=== PATIENT | female | born 1945 | race Hispanic/Latino ===

== ENCOUNTER → 2017-11-16 | Outpatient (CLI) | payer OTHER | END | disposition home or self-care (01) | LOC: RAH 13:02 | PROVIDERS: ATTEND Family Medicine | DX: Z12.31 Encounter for screening mammogram for malignant neoplasm of breast (principal) | CPT/HCPCS: 77067 ==

== ENCOUNTER → 2018-05-15 | Outpatient (CLI) | payer OTHER ==
[~2018-05-15] MED LIST: IOHEXOL-350 50ML VIAL IV ONE
== END | disposition home or self-care (01) ==
LOC: RAH 11:40
PROVIDERS: ATTEND Family Medicine
DX: R51 Headache (principal); R42 Dizziness and giddiness
CPT/HCPCS: 70470; Q9967

== ENCOUNTER 2021-01-11 14:12 | Inpatient (IN) | payer OTHER ==
[~2021-01-11] VITALS: Ht 157.5 cm; Wt 70.7 kg
[2021-01-11] MEDS ORDERED: PANTOPRAZOLE 40 MG/VIAL IVP ONE (15:00)
[2021-01-11 15:28] LABS: BASOPHILS % (AUTO) 0.3 % (0.0-5.0); EOSINOPHILS % (AUTO) 1.5 % (0.0-8.0); HEMATOCRIT 25.2 % (36-48); LYMPHOCYTES % (AUTO) 30.7 % (21.0-51.0); MEAN CORPUSCULAR HEMOGLOBIN 26.3 pg (27.0-33.0); MEAN CORPUSCULAR HGB CONC 30.6 g/dL (32.0-36.0); MONOCYTES % (AUTO) 5.3 % (3.0-13.0); NEUTROPHILS % (AUTO) 60.2 % (40.0-77.0); NUCLEATED RED BLOOD CELLS 0.1 % (0.0-0.19); PLATELET COUNT (AUTO) 444 K/uL (130-400); RED BLOOD CELL COUNT(AUTO) 2.93 MIL/uL (4.00-5.50); RED CELL DISTRIBUTION WIDTH 15.4 % (11.0-15.5); WHITE BLOOD COUNT (AUTO) 18.4 K/uL (4.8-10.8)
[2021-01-11 15:44] LABS: CREATININE 1.5 mg/dL (0.5-1.5); INR 1.38 (0.85-1.15); POTASSIUM 3.4 mmol/L (3.5-5.1); PROTHROMBIN TIME 14.6 SEC (9.6-11.6)
[2021-01-11 15:45] LABS: PARTIAL THROMBOPLASTIN TIME 34.2 SEC (26.3-35.5)
[2021-01-11 15:48] LABS: ALBUMIN 3.3 g/dL (3.5-5.0); BILIRUBIN,TOTAL 0.2 mg/dL (0.2-1.0); TOTAL PROTEIN, SERUM 7.8 g/dL (6.0-8.3)
[2021-01-11] MEDS: PANTOPRAZOLE 40MG INJ 80 MG in 0.9%NACL 100ML 100 ML IVP SCH (15:57)
[2021-01-11] MEDS ORDERED: 0.9%NACL 1000ML 1,000 ML IV ONE (16:00)
[2021-01-11] MEDS ORDERED: PANTOPRAZOLE 40MG INJ 80 MG in 0.9%NACL 100ML 100 ML IVP SCH (16:30)
[2021-01-11] MEDS ORDERED: ACETAMINOPHEN 325 MG TAB PO PRN (16:30)
[2021-01-11] MEDS: LACTATED RINGERS 1000ML 1,000 ML IV SCH (16:30)
[2021-01-11] MEDS ORDERED: SUCR1TAB2 PO (17:23)
[2021-01-11] MEDS ORDERED: LOSA100T58 PO (17:23)
[2021-01-11] MEDS ORDERED: PANT40TA54 PO (17:23)
[2021-01-11] MEDS ORDERED: ASPI-1443 PO (17:23)
[2021-01-11] MEDS ORDERED: HYDR25TA PO (17:23)
[2021-01-11] MEDS ORDERED: SIMV-43 PO (17:23)
[2021-01-11] MEDS ORDERED: RIVA15TA PO (17:23)
[2021-01-11 22:55] LABS: HEMATOCRIT 23.4 % (36-48)
[2021-01-12 06:24] LABS: BASOPHILS % (AUTO) 0.3 % (0.0-5.0); EOSINOPHILS % (AUTO) 1.6 % (0.0-8.0); HEMATOCRIT 23.4 % (36-48); LYMPHOCYTES % (AUTO) 32.7 % (21.0-51.0); MEAN CORPUSCULAR HEMOGLOBIN 26.6 pg (27.0-33.0); MEAN CORPUSCULAR HGB CONC 29.5 g/dL (32.0-36.0); MEAN CORPUSCULAR VOLUME 90.3 fL (79-99); MONOCYTES % (AUTO) 5.7 % (3.0-13.0); NEUTROPHILS % (AUTO) 58.5 % (40.0-77.0); NUCLEATED RED BLOOD CELLS 0.1 % (0.0-0.19); PLATELET COUNT (AUTO) 367 K/uL (130-400); RED BLOOD CELL COUNT(AUTO) 2.59 MIL/uL (4.00-5.50); RED CELL DISTRIBUTION WIDTH 15.5 % (11.0-15.5)
[2021-01-12 06:34] LABS: INR 1.1 (0.85-1.15); PROTHROMBIN TIME 11.9 SEC (9.6-11.6)
[2021-01-12 06:38] LABS: % IRON SATURATION 6.8 % (22-44)
[2021-01-12 06:44] LABS: ALBUMIN 2.9 g/dL (3.5-5.0); B-TYPE NATRIURETIC PEPTIDE 48 pg/mL (0-100); BILIRUBIN,TOTAL 0.2 mg/dL (0.2-1.0); CREATININE 1.2 mg/dL (0.5-1.5); MAGNESIUM 2.4 mg/dL (1.80-2.40); POTASSIUM 3.6 mmol/L (3.5-5.1); THYROID STIMULATING HORMONE 1.28 uIU/mL (0.36-3.74); TOTAL PROTEIN, SERUM 6.8 g/dL (6.0-8.3)
[2021-01-12] MEDS: LACTATED RINGERS 1000ML 1,000 ML IV SCH ×3 (08:38→22:36)
[2021-01-12] MEDS: PANTOPRAZOLE 40MG INJ 80 MG in 0.9%NACL 100ML 100 ML IVP SCH ×3 (08:38→22:36)
[2021-01-12 10:20] LABS: HEMATOCRIT 24.2 % (36-48)
[2021-01-12 14:14] LABS: HEMATOCRIT 27.6 % (36-48)
[2021-01-12 16:09] VITALS: BP 147/58
[2021-01-12 20:00] VITALS: BP 140/63
[2021-01-13] VITALS (19 sets, daily range): BP systolic 108–151; BP diastolic 48–87
[2021-01-13 05:57] LABS: BASOPHILS % (AUTO) 0.4 % (0.0-5.0); EOSINOPHILS % (AUTO) 2.3 % (0.0-8.0); HEMATOCRIT 28.2 % (36-48); LYMPHOCYTES % (AUTO) 35.9 % (21.0-51.0); MEAN CORPUSCULAR HEMOGLOBIN 26.4 pg (27.0-33.0); MEAN CORPUSCULAR HGB CONC 31.2 g/dL (32.0-36.0); MEAN CORPUSCULAR VOLUME 84.7 fL (79-99); MONOCYTES % (AUTO) 5.8 % (3.0-13.0); NEUTROPHILS % (AUTO) 54.4 % (40.0-77.0); PLATELET COUNT (AUTO) 367 K/uL (130-400); RED BLOOD CELL COUNT(AUTO) 3.33 MIL/uL (4.00-5.50); RED CELL DISTRIBUTION WIDTH 15.9 % (11.0-15.5); WHITE BLOOD COUNT (AUTO) 13.9 K/uL (4.8-10.8)
[2021-01-13 06:14] LABS: ALBUMIN 2.9 g/dL (3.5-5.0); BILIRUBIN,TOTAL 0.3 mg/dL (0.2-1.0); CREATININE 1.1 mg/dL (0.5-1.5); MAGNESIUM 1.7 mg/dL (1.80-2.40); POTASSIUM 3.6 mmol/L (3.5-5.1); TOTAL PROTEIN, SERUM 6.9 g/dL (6.0-8.3)
[2021-01-13] MEDS ORDERED: MAGNESIUM 2GM PREMIX 50ML 50 ML IV SCH (07:30)
[2021-01-13] MEDS ORDERED: FENTANYL CITRATE PF 50 MCG/1 ML 2ML VIAL ONE (11:04)
[2021-01-13] MEDS ORDERED: MIDAZOLAM HCL 1 MG/ML 2ML VIAL ONE (11:05)
[2021-01-13] MEDS ORDERED: POTASSIUM CHLORIDE 20MEQ/100ML 100 ML IV PRN (12:30)
[2021-01-13] MEDS ORDERED: COMPOUND IV REFRIGERATED 1 EACH IVSOLN MISC PRN (12:30)
[2021-01-13] MEDS ORDERED: LIDOCAINE HCL-MPF 1% 2ML VIAL IV PRN (12:30)
[2021-01-13] MEDS ORDERED: POTASSIUM CHLORIDE 10% ELIXIR 20 MEQ/15 ML UDCUP PO PRN (12:30)
[2021-01-13] MEDS: PANTOPRAZOLE 40 MG TAB DR PO SCH (12:36)
[2021-01-13] MEDS: LACTATED RINGERS 1000ML 1,000 ML IV SCH (14:27)
[2021-01-13] MEDS: KCL 20 MEQ ERTAB PO PRN ×2 (14:41→18:19)
[2021-01-14] VITALS: BP 129/49
[2021-01-14 03:57] VITALS: BP 120/46
[2021-01-14 04:40] LABS: HEMATOCRIT 27.5 % (36-48); MEAN CORPUSCULAR HGB CONC 29.5 g/dL (32.0-36.0); MEAN CORPUSCULAR VOLUME 88.4 fL (79-99); RED BLOOD CELL COUNT(AUTO) 3.11 MIL/uL (4.00-5.50); RED CELL DISTRIBUTION WIDTH 16.3 % (11.0-15.5); WHITE BLOOD COUNT (AUTO) 15.1 K/uL (4.8-10.8)
[2021-01-14 04:53] LABS: ALBUMIN 2.6 g/dL (3.5-5.0); BILIRUBIN,TOTAL 0.2 mg/dL (0.2-1.0); CREATININE 1.1 mg/dL (0.5-1.5); MAGNESIUM 2.2 mg/dL (1.80-2.40); POTASSIUM 4.1 mmol/L (3.5-5.1); TOTAL PROTEIN, SERUM 6.2 g/dL (6.0-8.3)
[2021-01-14 07:56] VITALS: BP 136/50
[2021-01-14] MEDS: PANTOPRAZOLE 40 MG TAB DR PO SCH (08:34)
[2021-01-14 11:37] LABS: APPEARANCE,URINE Cloudy (CLEAR); BILIRUBIN,URINE Negative (NEGATIVE); COLOR,URINE Yellow (YELLOW); GLUCOSE, URINE (UA) Negative (NEGATIVE); KETONES,URINE Negative (NEGATIVE); LEUKOCYTE ESTERASE ,URINE Trace (NEGATIVE); NITRATE,URINE Negative (NEGATIVE); OCCULT BLOOD,URINE Negative (NEGATIVE); PROTEIN,URINE Negative (NEGATIVE); UROBILINOGEN,URINE 0.2 mg/dL (0.2-1.0)
[2021-01-14 11:50] LABS: BACTERIA,URINE Rare /HPF (None Seen); RBC,URINE 0-1 /HPF (0-1); WBC,URINE 0-1 /HPF (0-1)
[2021-01-14 12:08] VITALS: BP 134/47
[2021-01-14] MEDS ORDERED: CARAL PO (15:08)
[2021-01-14] MEDS ORDERED: PANT40TA55 PO (15:08)
[2021-01-14 16:00] VITALS: BP 134/52
== END 2021-01-14 17:20 | disposition home or self-care (01) | DRG 378 ==
LOC: EDH 14:12 → EDHIP 16:20 → 3DH 01-12 16:00
PROVIDERS: ADMIT Internal Medicine Critical Care Medicine; ATTEND Internal Medicine Critical Care Medicine
PROC: 30233N1 Transfusion of Nonautologous Red Blood Cells into Peripheral Vein, Percutaneous Approach (ICD-10-PCS; 2021-01-12)
PROC: 0DJ08ZZ Inspection of Upper Intestinal Tract, Via Natural or Artificial Opening Endoscopic (ICD-10-PCS; principal; 2021-01-13)
DX: K25.4 Chronic or unspecified gastric ulcer with hemorrhage (principal); D62 Acute posthemorrhagic anemia; E78.5 Hyperlipidemia, unspecified; K44.9 Diaphragmatic hernia without obstruction or gangrene; I10 Essential (primary) hypertension; E78.00 Pure hypercholesterolemia, unspecified; K21.00 Gastro-esophageal reflux disease with esophagitis, without bleeding; Z90.710 Acquired absence of both cervix and uterus; Z79.01 Long term (current) use of anticoagulants; Z79.899 Other long term (current) drug therapy; Z86.718 Personal history of other venous thrombosis and embolism
CPT/HCPCS: 36415; 43235; 80053; 81001; 82270; 83540; 83550; 83735; 83880; 84100; 84443; 85014; 85018; 85025; 85027; 85610; 85730; 86850; 86900; 86901; 86923; 93005; 93970; 99152; A4606; C9113; G0378; J2250; J3010; J3475; J7120; P9016

== ENCOUNTER → 2022-01-25 | Outpatient (CLI) | payer OTHER ==
[~2022-01-25] MED LIST changes: +CARAL PO; +HYDR25TA PO; +IOHEXOL 350 MG/ML 100ML INFUS..BTL IV ONE; -IOHEXOL-350 50ML VIAL IV ONE; +LOSA100T58 PO; +PANT40TA55 PO; +SIMV-43 PO
== END | disposition home or self-care (01) ==
LOC: RAH 08:09
PROVIDERS: ATTEND Family Medicine
DX: E04.9 Nontoxic goiter, unspecified (principal); I51.7 Cardiomegaly; I82.409 Acute embolism and thrombosis of unspecified deep veins of unspecified lower extremity; K76.0 Fatty (change of) liver, not elsewhere classified; R06.00 Dyspnea, unspecified; I70.0 Atherosclerosis of aorta
CPT/HCPCS: 71270; Q9967

== ENCOUNTER → 2022-02-24 | Outpatient (CLI) | payer OTHER ==
[~2022-02-24] MED LIST changes: -IOHEXOL 350 MG/ML 100ML INFUS..BTL IV ONE
== END | disposition home or self-care (01) ==
LOC: RAH 13:41
PROVIDERS: ATTEND Family Medicine
DX: R94.31 Abnormal electrocardiogram [ECG] [EKG] (principal); I34.81 Nonrheumatic mitral (valve) annulus calcification
CPT/HCPCS: 93306

== ENCOUNTER 2022-08-28 07:03 | Inpatient (IN) | payer OTHER ==
[2022-08-25 10:54] LABS: BASOPHILS % (AUTO) 0.6 % (0.0-5.0); EOSINOPHILS % (AUTO) 4.6 % (0.0-8.0); HEMATOCRIT 34.8 % (36-48); LYMPHOCYTES % (AUTO) 36.2 % (21.0-51.0); MEAN CORPUSCULAR HEMOGLOBIN 29.6 pg (27.0-33.0); MEAN CORPUSCULAR HGB CONC 30.5 g/dL (32.0-36.0); MEAN CORPUSCULAR VOLUME 97.2 fL (79-99); MONOCYTES % (AUTO) 7.2 % (3.0-13.0); NEUTROPHILS % (AUTO) 50.8 % (40.0-77.0); PLATELET COUNT (AUTO) 339 K/uL (130-400); RED BLOOD CELL COUNT(AUTO) 3.58 MIL/uL (4.00-5.50); RED CELL DISTRIBUTION WIDTH 13.5 % (11.0-15.5); WHITE BLOOD COUNT (AUTO) 10.8 K/uL (4.8-10.8)
[2022-08-25 11:02] LABS: APPEARANCE,URINE CLEAR (CLEAR); BILIRUBIN,URINE NEGATIVE (NEGATIVE); COLOR,URINE COLORLESS (YELLOW); GLUCOSE, URINE (UA) NEGATIVE (NEGATIVE); KETONES,URINE NEGATIVE (NEGATIVE); LEUKOCYTE ESTERASE ,URINE NEGATIVE Leu/uL (NEGATIVE); NITRATE,URINE NEGATIVE (NEGATIVE); OCCULT BLOOD,URINE NEGATIVE (NEGATIVE); PROTEIN,URINE NEGATIVE (NEGATIVE); UROBILINOGEN,URINE 0.2 mg/dL (0.2-1.0)
[2022-08-25 11:13] LABS: ALBUMIN 3.2 g/dL (3.5-5.0); CARBON DIOXIDE 25 mmol/L (21-32); CHLORIDE 109 mmol/L (101-111); CREATININE 1.1 mg/dL (0.5-1.5); CRP QUANTITATIVE < 2.00 mg/L (0.00-9.0); GLOMERULAR FILTR. RATE CALC 51 mL/min (>90); GLUCOSE,RANDOM 84 mg/dL (70-105); POTASSIUM 4.2 mmol/L (3.5-5.1); SODIUM SERUM 143 mmol/L (136-145); UREA NITROGEN, BLOOD 23 mg/dL (7-18)
[2022-08-25 11:28] VITALS: BP 170/89; PULSE 63; RESP 16
[2022-08-25 11:32] LABS: INR 0.93 (0.85-1.15); PROTHROMBIN TIME 10.5 SEC (9.6-11.6)
[2022-08-25 11:33] LABS: PARTIAL THROMBOPLASTIN TIME 26.3 SEC (26.3-35.5)
[~2022-08-28] VITALS: Ht 160 cm; Wt 73.1 kg
[2022-08-28] VITALS (26 sets, daily range): BP systolic 110–160; BP diastolic 44–76; PULSE 52–85; RESP 14–20; O2SAT 95–96
[~2022-08-28 07:03] MED LIST changes: +CALC-866 PO; -CARAL PO; +FURO20TA4 PO; -HYDR25TA PO; +IRON150C5 PO; -LOSA100T58 PO; +LOSA100T59 PO; +PANT40TA54 PO; -PANT40TA55 PO; +SUPER B COMPLEX PO
[2022-08-28] MEDS ORDERED: CEFAZOLIN SODIUM 2 GM VIAL ONE (07:48)
[2022-08-28] MEDS ORDERED: ROPIVACAINE 0.5% 5MG/ML 30ML IJ ONE (07:49)
[2022-08-28] MEDS ORDERED: TRANEXAMIC ACID 1000MG/10ML ONE (07:49)
[2022-08-28] MEDS ORDERED: LACTATED RINGERS 1000ML 1,000 ML IV ONE (07:49)
[2022-08-28] MEDS ORDERED: KETOROLAC 30MG VIAL (30MG/ML) ONE (07:49)
[2022-08-28] MEDS ORDERED: ROCURONIUM 10MG/1ML SYR 10 MG/ML ML ONE (08:45)
[2022-08-28] MEDS ORDERED: PROPOFOL 10 MG/ML 20ML VIAL IV ONE (08:45)
[2022-08-28] MEDS ORDERED: FENTANYL CITRATE PF 50 MCG/1 ML 2ML VIAL ONE ×2 (08:45→10:07)
[2022-08-28] MEDS ORDERED: ONDANSETRON 4MG INJ ONE (08:45)
[2022-08-28] MEDS ORDERED: MEPERIDINE-PF 25 MG/ML SYG ONE ×2 (11:43→12:35)
[2022-08-28] MEDS ORDERED: GLYCOPYRROLATE 1 MG/5 ML SYRINGE ONE (11:58)
[2022-08-28] MEDS ORDERED: NEOSTIGMINE 5MG/5ML SYR IV ONE (11:58)
[2022-08-28] MEDS ORDERED: ONDANSETRON 4MG INJ IVP PRN (12:30)
[2022-08-28] MEDS ORDERED: KCL 20 MEQ ERTAB PO PRN (12:30)
[2022-08-28] MEDS ORDERED: POTASSIUM CHLORIDE 20MEQ/100ML 100 ML IV PRN (12:30)
[2022-08-28] MEDS ORDERED: FERROUS FUMARATE 324 MG TABLET PO PRN (12:30)
[2022-08-28] MEDS ORDERED: CYCLOBENZAPRINE HCL 10 MG TABLET PO PRN (12:30)
[2022-08-28] MEDS ORDERED: POTASSIUM CHLORIDE 10% ELIXIR 20 MEQ/15 ML UDCUP PO PRN (12:30)
[2022-08-28] MEDS ORDERED: CALCIUM CARB 500MG PO PRN (12:30)
[2022-08-28] MEDS: KETOROLAC 15MG/ML VIAL (15MG/ML) IV SCH ×2 (12:30→19:53)
[2022-08-28 12:41] LABS: HEMATOCRIT 30.7 % (36-48)
[2022-08-28] MEDS: 0.9%NACL 1000ML 1,000 ML IV SCH ×2 (14:28→23:52)
[2022-08-28] MEDS: GABAPENTIN 100 MG CAPSULE PO SCH ×2 (14:33→19:54)
[2022-08-28] MEDS: CEFAZOLIN SODIUM 2 GM VIAL IVPB SCH ×2 (16:33→23:52)
[2022-08-28] MEDS: DOCUSATE SODIUM 100 MG CAP PO SCH (19:53)
[2022-08-29] VITALS (7 sets, daily range): BP systolic 123–157; BP diastolic 52–76; PULSE 82–100; RESP 16–18; O2SAT 95–98
[2022-08-29] MEDS: KETOROLAC 15MG/ML VIAL (15MG/ML) IV SCH (04:05)
[2022-08-29 04:42] LABS: HEMATOCRIT 26.9 % (36-48); MEAN CORPUSCULAR HGB CONC 30.1 g/dL (32.0-36.0); MEAN CORPUSCULAR VOLUME 96.4 fL (79-99); RED BLOOD CELL COUNT(AUTO) 2.79 MIL/uL (4.00-5.50); RED CELL DISTRIBUTION WIDTH 13.5 % (11.0-15.5); WHITE BLOOD COUNT (AUTO) 15.2 K/uL (4.8-10.8)
[2022-08-29 05:00] LABS: CREATININE 1.2 mg/dL (0.5-1.5); POTASSIUM 4.4 mmol/L (3.5-5.1)
[2022-08-29] MEDS: 0.9%NACL 1000ML 1,000 ML IV SCH (08:30)
[2022-08-29] MEDS: DOCUSATE SODIUM 100 MG CAP PO SCH ×2 (10:10→19:53)
[2022-08-29] MEDS: GABAPENTIN 100 MG CAPSULE PO SCH ×3 (10:10→19:53)
[2022-08-29] MEDS: ASPIRIN 325MG TAB PO SCH (10:11)
[2022-08-29] MEDS: POLYETHYLENE GLYCOL 3350 17 GM POWD.PACK PO SCH (10:11)
[2022-08-29] MEDS ORDERED: KETOROLAC 15MG/ML VIAL (15MG/ML) IV PRN (12:30)
[2022-08-30] VITALS (9 sets, daily range): BP systolic 110–162; BP diastolic 50–75; PULSE 86–98; RESP 17–21; O2SAT 95
[2022-08-30] MEDS: DOCUSATE SODIUM 100 MG CAP PO SCH ×2 (09:06→21:00)
[2022-08-30] MEDS: POLYETHYLENE GLYCOL 3350 17 GM POWD.PACK PO SCH (09:06)
[2022-08-30] MEDS: ASPIRIN 325MG TAB PO SCH (09:06)
[2022-08-30] MEDS: GABAPENTIN 100 MG CAPSULE PO SCH ×3 (09:06→21:00)
[2022-08-30] MEDS: HYDROCODONE/ACETAMINOPHEN 5/325 MG TAB PO PRN (10:13)
[2022-08-31] VITALS (8 sets, daily range): BP systolic 126–147; BP diastolic 52–70; PULSE 77–97; RESP 16–18; O2SAT 95
[2022-08-31] MEDS: HYDROCODONE/ACETAMINOPHEN 5/325 MG TAB PO PRN (07:33)
[2022-08-31] MEDS: GABAPENTIN 100 MG CAPSULE PO SCH ×3 (08:19→20:32)
[2022-08-31] MEDS: POLYETHYLENE GLYCOL 3350 17 GM POWD.PACK PO SCH (08:19)
[2022-08-31] MEDS: ASPIRIN 325MG TAB PO SCH (08:19)
[2022-08-31] MEDS: DOCUSATE SODIUM 100 MG CAP PO SCH ×2 (08:19→20:31)
[2022-08-31] MEDS ORDERED: BISACODYL 10 MG SUPP.RECT RC PRN (12:30)
[2022-09-01 05:00] VITALS: BP 133/53; PULSE 82; RESP 16
[2022-09-01 07:35] VITALS: O2SAT 97
[2022-09-01 08:00] VITALS: BP 145/51; PULSE 94; RESP 18
[2022-09-01] MEDS: DOCUSATE SODIUM 100 MG CAP PO SCH ×2 (08:13→20:02)
[2022-09-01] MEDS: POLYETHYLENE GLYCOL 3350 17 GM POWD.PACK PO SCH (08:13)
[2022-09-01] MEDS: GABAPENTIN 100 MG CAPSULE PO SCH ×3 (08:13→20:03)
[2022-09-01] MEDS: ASPIRIN 325MG TAB PO SCH (08:14)
[2022-09-01] MEDS: TRAMADOL HCL 50 MG TABLET PO PRN (08:14)
[2022-09-01 12:00] VITALS: BP 166/66; PULSE 91; RESP 18
[2022-09-01] MEDS ORDERED: DOCU-116 PO (12:58)
[2022-09-01] MEDS ORDERED: GABA100C PO (12:58)
[2022-09-01] MEDS ORDERED: CYCL-309 PO (12:58)
[2022-09-01] MEDS ORDERED: ASPI-1026 PO (12:58)
[2022-09-01] MEDS ORDERED: HYDR-4060 PO (12:58)
[2022-09-01 16:00] VITALS: BP 163/59; PULSE 93; RESP 18
[2022-09-01 20:00] VITALS: BP 154/47; PULSE 89; RESP 18
[2022-09-02] VITALS: BP 152/44; PULSE 94; RESP 20
[2022-09-02 04:00] VITALS: BP 152/59; PULSE 80; RESP 20
[2022-09-02 08:00] VITALS: BP 147/56; PULSE 94; RESP 18; O2SAT 97
[2022-09-02] MEDS: DOCUSATE SODIUM 100 MG CAP PO SCH (08:10)
[2022-09-02] MEDS: POLYETHYLENE GLYCOL 3350 17 GM POWD.PACK PO SCH (08:10)
[2022-09-02] MEDS: TRAMADOL HCL 50 MG TABLET PO PRN (08:10)
[2022-09-02] MEDS: GABAPENTIN 100 MG CAPSULE PO SCH ×2 (08:10→14:14)
[2022-09-02] MEDS: ASPIRIN 325MG TAB PO SCH (09:00)
[2022-09-02 12:00] VITALS: BP 142/67; PULSE 91; RESP 17
[2022-09-02 16:00] VITALS: BP 145/63; PULSE 86; RESP 18
== END 2022-09-02 16:40 | DRG 470 ==
LOC: DAH 07:03 → 4AH 07:04 → OBSVTOIN 07:04 → 4AH 07:05
PROVIDERS: ADMIT Student in an Organized Health Care Education/Training Program; ATTEND Student in an Organized Health Care Education/Training Program
PROC: 0SRD069 Replacement of Left Knee Joint with Oxidized Zirconium on Polyethylene Synthetic Substitute, Cemented, Open Approach (ICD-10-PCS; principal; 2022-08-28 08:56)
DX: M17.12 Unilateral primary osteoarthritis, left knee (principal); D62 Acute posthemorrhagic anemia; Z20.822 Contact with and (suspected) exposure to COVID-19; Z79.899 Other long term (current) drug therapy
CPT/HCPCS: 36415; 73560; 80048; 81003; 82040; 84134; 85014; 85018; 85025; 85027; 85610; 85730; 86140; 86850; 86900; 86901; 87088; 87426; 87641; 93005; 97039; G0378; J1885; J2175; J2405; J2704; J2710; J2795; J3010; J3490; J7120; A4215; A4221; A4222; A4223; A4600; A4649; A4663; A4930; A6255; C1713; C1776; G0168; J0690